=== PATIENT | male | born 1985 | race African-American/Black ===

== ENCOUNTER → 2023-01-29 12:15 | Outpatient (CLI) | payer OTHER, SELFPAY ==
--- NOTE | 2023-01-29 | DI.MRI.S_ITS ---
PROCEDURE: MR HEAD/BRAIN WO/W CON INDICATIONS: Unspecified visual loss TECHNIQUE: Noncontrast axial T1 spin echo, axial T2 fast spin echo, sagittal and axial FLAIR, coronal T2 fast spin echo, axial gradient echo, axial diffusion and ADC through the brain. After the administration of contrast, axial and coronal and sagittal 3D VIBE or T1 spin echo with fat saturation through the brain. COMPARISON: None. FINDINGS: Image quality: Excellent. CSF Spaces: Basal cisterns are patent. No extra-axial fluid collections. Ventricles are normal in size and shape. Brain: No midline shift. No intracranial bleeds or masses. No abnormal intracranial enhancement. The brainstem appears normal. Diffusion-weighted images demonstrate no acute ischemic insults. No chronic ischemic insults. Normal intravascular flow voids are present. Skull and face: Calvarial marrow is normal in signal. Orbits appear normal. Sinuses: Sinuses and mastoids appear clear. IMPRESSION: 1. No acute intracranial abnormality. 2. No acute ischemia. 3. No abnormal post gadolinium enhancement. Dictated by: Stanley Lou M.D. on 01/29/2023 at 15:28 Approved by: Stanley Lou M.D. on 01/29/2023 at 15:34
== END ==
PROVIDERS: PCP Optometrist; Referring Provider Optometrist; Visit Provider Optometrist
DX: H54.7 Unspecified visual loss (principal)
CPT/HCPCS: 70553; A9579

== ENCOUNTER → 2023-04-15 14:52 | Outpatient (CLI) | payer OTHER, SELFPAY ==
--- NOTE | 2023-04-15 | DI.MRI.S_ITS ---
PROCEDURE: MR CERVICAL SPINE WO CON INDICATIONS: Paresthesia of skin TECHNIQUE: Noncontrast sagittal T1 spin echo and T2 fast spin echo, sagittal STIR, foraminal oblique sagittal T2 fast spin echo, and axial gradient echo or T2 fast spin echo through the cervical spine. COMPARISON: [facility], MR, MR LUMBAR SPINE WO CON, 04/15/2023, 14:54. [facility], MR, MR THORACIC SPINE WO CON, 04/15/2023, 14:54. FINDINGS: Image quality: Excellent. Alignment and Curvature: There is normal bony alignment. Bone Marrow: Marrow demonstrates normal overall signal. Spinal Cord: Visualized spinal cord has normal size and signal. No cerebellar tonsillar herniation. Paraspinous Soft Tissues: No paravertebral masses. Prevertebral soft tissues are normal in thickness. C2-C3: No significant disc bulge. The foramina and central canal are patent. C3-C4: The disc is desiccated. Diffuse left-sided disc bulge causes moderate left foraminal stenosis. The right foramen is patent. The central canal is patent. C4-C5: The disc is desiccated. No significant disc bulge. The foramina and central canal are patent. C5-C6: The disc is desiccated. Diffuse left-sided disc bulge causes moderate left foraminal stenosis. The right foramen is patent. The central canal is patent. C6-C7: The disc is desiccated. Diffuse left-sided disc bulge causes moderate left foraminal stenosis. The right foramen is patent. The central canal is patent. C7-T1: No significant disc bulge. The foramina and central canal are patent. IMPRESSION: 1. Disc degeneration from C3-4 through C6-7. 2. Diffuse left-sided disc bulges at C3-4, C5-6, and C6-7 causing moderate foraminal stenosis on the left at these levels. Dictated by: Stanley Lou M.D. on 04/15/2023 at 17:34 Approved by: Stanley Lou M.D. on 04/15/2023 at 17:39
--- NOTE | 2023-04-15 | DI.MRI.S_ITS ---
PROCEDURE: MR THORACIC SPINE WO CON INDICATIONS: Paresthesia of skin TECHNIQUE: Noncontrast sagittal T1 spine echo and T2 fast spin echo, sagittal STIR, and T2 fast spin echo through the thoracic spine. COMPARISON: None. FINDINGS: Image quality: Excellent. Alignment and Curvature: There is normal bony alignment. Bone Marrow: Marrow is of normal overall signal. No acute vertebral body compression fractures. Spinal Cord: Visualized spinal cord is normal in size and signal. Paraspinous Soft Tissues: No paravertebral masses. Miscellaneous: On axial images, central canal and foramina appear widely patent at all scanned levels. IMPRESSION: Normal thoracic spine. Dictated by: Stanley Lou M.D. on 04/15/2023 at 17:42 Approved by: Stanley Lou M.D. on 04/15/2023 at 17:43
--- NOTE | 2023-04-15 | DI.MRI.S_ITS ---
PROCEDURE: MR LUMBAR SPINE WO CON INDICATIONS: Paresthesia of skin TECHNIQUE: Noncontrast sagittal T1 spin echo and T2 fast echo, sagittal STIR, and T2 fast spin echo through the lumbar spine. In cases with scoliosis, additional coronal T2 fast spin echo may be performed. COMPARISON: None. FINDINGS: Image quality: Excellent. Alignment and Curvature: There is normal bony alignment. Bone Marrow: Marrow is of normal overall signal. No acute vertebral body compression fractures. Spinal Cord: Conus medullaris terminates at the L1 level. Visualized cord demonstrates normal signal and size. Paraspinous Soft Tissues: No paravertebral masses. T12-L1: No significant disc bulge. The foramina and central canal are patent. L1-L2: No significant disc bulge. The foramina and central canal are patent. L2-L3: No significant disc bulge. The foramina and central canal are patent. L3-L4: No significant disc bulge. The foramina and central canal are patent. Diffuse disc bulge causes mild bilateral foraminal stenosis. The central canal is patent. L4-L5: No significant disc bulge. The foramina and central canal are patent. Diffuse disc bulge causes mild bilateral foraminal stenosis. The central canal is patent. L5-S1: No significant disc bulge. The foramina and central canal are patent. IMPRESSION: 1. Mild diffuse disc bulges at L3-4 and L4-5 causing mild bilateral foraminal stenosis. 2. No focal protrusions or extrusions. Dictated by: Stanley Lou M.D. on 04/15/2023 at 17:40 Approved by: Stanley Lou M.D. on 04/15/2023 at 17:41
== END ==
PROVIDERS: PCP Optometrist; Referring Provider Physician Assistant; Visit Provider Physician Assistant
DX: M50.31 Other cervical disc degeneration, high cervical region (principal); M48.02 Spinal stenosis, cervical region; M51.36 Other intervertebral disc degeneration, lumbar region; M48.061 Spinal stenosis, lumbar region without neurogenic claudication; R20.2 Paresthesia of skin
CPT/HCPCS: 72141; 72146; 72148

== ENCOUNTER → 2024-03-31 12:32 | Outpatient (CLI) | payer OTHER, SELFPAY ==
--- NOTE | 2024-03-31 12:38 | DI.RAD.S_ITS ---
PROCEDURE: XR WRIST RT 2V INDICATIONS: Pain TECHNIQUE: 2 views of the wrist were acquired. COMPARISON: None. FINDINGS: Bones: No fractures or dislocations. No suspicious bony lesions. No significant degenerative change. Soft tissues: No suspicious soft tissue calcifications. IMPRESSION: No acute bony abnormality. Dictated by: Juanjose Gar M.D. on 03/31/2024 at 14:52 Approved by: Juanjose Gar M.D. on 03/31/2024 at 14:54
--- NOTE | 2024-03-31 12:38 | DI.RAD.S_ITS ---
PROCEDURE: XR WRIST LT 2V INDICATIONS: Pain TECHNIQUE: 2 views of the wrist were acquired. COMPARISON: None. FINDINGS: Bones: No fractures or dislocations. No suspicious bony lesions. Soft tissues: No suspicious soft tissue calcifications. IMPRESSION: No acute bony abnormality. Dictated by: Juanjose Gar M.D. on 03/31/2024 at 15:22 Approved by: Juanjose Gar M.D. on 03/31/2024 at 15:22
--- NOTE | 2024-03-31 12:39 | DI.RAD.S_ITS ---
PROCEDURE: XR HAND RT 2V INDICATIONS: Pain TECHNIQUE: 2 views of the hand(s) acquired. COMPARISON: None. FINDINGS: Bones: No fractures or dislocations. Carpal bones are normally aligned. No suspicious bony lesions. No significant degenerative change. Soft tissues: No suspicious soft tissue calcifications. IMPRESSION: No acute bony abnormality. Dictated by: Juanjose Gar M.D. on 03/31/2024 at 15:16 Approved by: Juanjose Gar M.D. on 03/31/2024 at 15:20
--- NOTE | 2024-03-31 12:39 | DI.RAD.S_ITS ---
PROCEDURE: XR CHEST 2V INDICATIONS: SHORTNESS OF BREATH TECHNIQUE: 2 views of the chest were acquired. COMPARISON: None. FINDINGS: Surgical changes and devices: None. Lungs and pleura: Lungs are clear. No pleural effusions or pneumothorax. Mediastinum: Mediastinal contours are normal. Heart size is normal. Bones and chest wall: No suspicious bony abnormalities. Soft tissues appear unremarkable. IMPRESSION: No evidence for active disease in the chest. Dictated by: Juanjose Gar M.D. on 03/31/2024 at 16:17 Approved by: Juanjose Gar M.D. on 03/31/2024 at 16:18
--- NOTE | 2024-03-31 12:39 | DI.RAD.S_ITS ---
PROCEDURE: XR KNEE RT 3V INDICATIONS: Pain TECHNIQUE: 3 views of the knee were acquired. COMPARISON: None. FINDINGS: Bones: No fractures or dislocations. No suspicious bony lesions. No significant degenerative change. Soft tissues: No joint effusion. No suspicious soft tissue calcifications. IMPRESSION: No acute bony abnormality or significant effusion. Dictated by: Juanjose Gar M.D. on 03/31/2024 at 15:21 Approved by: Juanjose Gar M.D. on 03/31/2024 at 15:22
--- NOTE | 2024-03-31 12:39 | DI.RAD.S_ITS ---
PROCEDURE: XR KNEE LT 3V INDICATIONS: Pain TECHNIQUE: 3 views of the knee were acquired. COMPARISON: None. FINDINGS: Bones: No fractures or dislocations. No suspicious bony lesions. No significant degenerative change. Soft tissues: No joint effusion. No suspicious soft tissue calcifications. IMPRESSION: No acute bony abnormality or significant effusion. Dictated by: Juanjose Gar M.D. on 03/31/2024 at 15:20 Approved by: Juanjose Gar M.D. on 03/31/2024 at 15:21
--- NOTE | 2024-03-31 12:39 | DI.RAD.S_ITS ---
PROCEDURE: XR HAND LT 2V INDICATIONS: SHORTNESS OF BREATH TECHNIQUE: 3 of the hand(s) acquired. COMPARISON: None. FINDINGS: Bones: No fractures or dislocations. Carpal bones are normally aligned. No suspicious bony lesions. There are 2 small surgical screws transfixing the base of the patient's left 2nd middle phalanx. There is some mild osteoarthritic degenerative change involving the left 2nd PIP joint. Soft tissues: No suspicious soft tissue calcifications. IMPRESSION: 1. No evidence for acute osseous abnormality involving the left hand. 2. Two small surgical screws transfixing the base of the patient's left 2nd middle phalanx. 3. 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 Dictated by: Juanjose Gar M.D. on 03/31/2024 at 16:18 Approved by: Juanjose Gar M.D. on 03/31/2024 at 16:21
== END ==
PROVIDERS: PCP Optometrist; Referring Provider Chiropractor; Visit Provider Chiropractor
DX: R06.02 Shortness of breath (principal); E55.9 Vitamin D deficiency, unspecified; M13.80 Other specified arthritis, unspecified site; M84.40XA Pathological fracture, unspecified site, initial encounter for fracture; R94.2 Abnormal results of pulmonary function studies; Z98.890 Other specified postprocedural states
CPT/HCPCS: 36415; 71046; 73100; 73120; 73562; 82306; 94060